=== PATIENT | male | born 2000 | race Caucasian/White ===

== ENCOUNTER → 2020-11-16 | Outpatient (CLI) | payer BC ==
--- NOTE | 2020-11-16 09:22 | REP ---
INDICATION: OTHER INSTABILITY COMPARISON: None. TECHNIQUE: AP, lateral, bilateral oblique views of the right elbow. FINDINGS: No acute fracture or dislocation is appreciated. Joint spaces and surrounding soft tissues appear normal. Lateral view demonstrates normal positioning to the anterior and posterior fat pads without evidence for effusion/hemarthrosis. No subcutaneous emphysema or foreign body identified. IMPRESSION: Normal elbow radiographs. <Electronically signed by Sebastián Mcgarry > 11/16/20 0919
== END ==
LOC: M SOG 08:53
PROVIDERS: ATTEND Orthopaedic Surgery Sports Medicine
DX: M25.321 Other instability, right elbow (principal)